=== PATIENT | male | born 1960 | race Caucasian/White ===

== ENCOUNTER 2020-02-18 21:04 | Observation (INO) | payer BC ==
[~2020-02-18] VITALS: Ht 182.9 cm; Wt 121.1 kg
[2020-02-18] MEDS ORDERED: KETOROLAC TROMETHAMINE 30 MG/ML VIAL IV STA (21:45)
[2020-02-18 21:50] LABS: BASOPHILS % 0.4 % (0.0-1.0); EOSINOPHILS # (AUTO) 0.1 (0.0-0.4); EOSINOPHILS % 1.2 % (0.0-6.0); HEMATOCRIT 46.4 % (38.2-49.6); HEMOGLOBIN 16.1 g/dL (14.0-18.0); LYMPHOCYTES % 26.1 % (18.0-39.1); MEAN CORPUSCULAR HEMOGLOBIN 31.7 pg (28-32); MEAN CORPUSCULAR HGB CONC 34.7 g/dL (31-35); MEAN CORPUSCULAR VOLUME 91.3 fL (81-99); MONOCYTES % 12.8 % (4.4-11.3); NEUTROPHILS # (AUTO) 4.5 (2.1-6.9); NEUTROPHILS % 58.5 % (38.7-80.0); PLATELET COUNT 211 x10e3/uL (140-360); RED BLOOD COUNT 5.08 x10e6/uL (4.3-5.7); RED CELL DISTRIBUTION WIDTH 12.5 % (11.7-14.4)
[2020-02-18 21:56] LABS: CLARITY,URINE CLEAR (CLEAR); COLOR,URINE YELLOW (YELLOW); KETONES,URINE TRACE (NEGATIVE); LEUKOCYTE ESTERASE ,URINE NEGATIVE (NEGATIVE); NITRITE,URINE NEGATIVE (NEGATIVE); PROTEIN,URINE DIPSTICK 2+ (NEGATIVE); URINE UROBILINOGEN 1 mg/dL (0.2 - 1)
[2020-02-18 21:57] LABS: BILIRUBIN,URINE NEGATIVE (NEGATIVE)
[2020-02-18 22:03] LABS: BACTERIA,URINE FEW /HPF
[2020-02-18 22:08] LABS: ALANINE AMINOTRANSFERASE 32 IU/L (0-55); ALBUMIN 4.6 g/dL (3.5-5.0); ALBUMIN/GLOBULIN RATIO 1.6 (0.8-2.0); ALKALINE PHOSPHATASE 109 IU/L (40-150); BLOOD UREA NITROGEN 10 mg/dL (7-26); BUN/CREATININE RATIO 9 (6-25); CALCIUM 9.4 mg/dL (8.4-10.2); CARBON DIOXIDE 23 mmol/L (22-29); CHLORIDE 100 mmol/L (98-107); CREATININE, SERUM 1.12 mg/dL (0.72-1.25); EST GLOMERULAR FILTRATION RATE > 60 ML/MIN (60-); GLUCOSE 167 mg/dL (74-118); SODIUM 140 mmol/L (136-145)
--- NOTE | 2020-02-18 23:07 | Diagnostic Imaging Report ---
EXAM: CT Abdomen and Pelvis WITHOUT contrast INDICATION: RT FLANK PAIN COMPARISON: None. TECHNIQUE: Abdomen and pelvis were scanned utilizing a multidetector helical scanner from the lung base to the pubic symphysis without administration of IV contrast. Absence of intravenous contrast decreases sensitivity for detection of focal lesions and vascular pathology. Coronal and sagittal reformations were obtained. Routine protocol was performed. IV CONTRAST: None ORAL CONTRAST: None COMPLICATIONS: None RADIATION DOSE: Total DLP: 849.91 mGy*cm Estimated effective dose: (DLP x 0.015 x size factor) mSv CTDIvol has been reviewed. It is below the limits set by the Radiation Protocol Committee (RPC). Dose modulation, iterative reconstruction, and/or weight based adjustment of the mA/kV was utilized to reduce the radiation dose to as low as reasonably achievable. FINDINGS: LINES and TUBES: None. LOWER THORAX: Unremarkable HEPATOBILIARY: No significant abnormality . GALLBLADDER: There are cholecystectomy clips. SPLEEN: No splenomegaly. PANCREAS: No significant abnormality . ADRENALS: No adrenal nodules KIDNEYS/URETERS: RIGHT: 4 mm calculus in the distal ureter with mild hydroureteronephrosis and associated mild perinephric fat stranding. LEFT: 2.6 cm fluid attenuating rounded lesion that abuts the renal pelvis may represent a parapelvic cyst, but incompletely characterized due to noncontrast technique. GI TRACT: No abnormal distention, wall thickening, or evidence of bowel obstruction. Appendix is normal. PELVIC ORGANS/BLADDER: Unremarkable. LYMPH NODES: No lymphadenopathy. VESSELS: Unremarkable. PERITONEUM / RETROPERITONEUM: No free air or fluid. BONES: Unremarkable. SOFT TISSUES: Small fat-containing inguinal hernias bilaterally. IMPRESSION: 4 mm calculus at the distal right ureter with mild right hydronephrosis. Signed by: Jonathon Patel MD on 02/18/2020 11:04 PM
[2020-02-18] MEDS ORDERED: HYDROMORPHONE 1MG/1ML INJ IV PRN (23:30)
[2020-02-18] MEDS ORDERED: ONDANSETRON HCL INJ 2MG/ML 2ML 2 MG/ML VIAL IV PRN (23:30)
--- NOTE | 2020-02-18 23:30 | Emergency Department Note ---
History of Present Illnes History of Present Illness Chief Complaint: Abdominal Complaints History of Present Illness This is a 59 year old male PRESENTS TO THE ER C/O RT FLANK PAIN RADIATING TO RT GROIN ONSET AROUND 1900; PT WAS DX WITH 6MM KIDNEY STONE IN RT URETER ON 02/16/20 AT [facility]; PT ALSO REPORTS HEMATURIA; PT IN OBVIOUS PAIN; . 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 Any updates have been documented here. Past Medical History Recent Fever: No Clinical Suspicion of Infectio: No New/Unexplained Change in Ment: No Past Medical History: Hypertension, Diabetes, Kidney Stones Past Surgical History: Cholecysctectomy, T&A, Hernia Repair Other Surgery: RT SHOULDER SX RT KNEE SX HERNIA REPAIR X2 LITHOTRIPSY X4 Social History Smoking Cessation: Never Smoker Alcohol Use: Occasional Any Illegal Drug Use: No Family History Family history of heart diseas: No Other Any Pre-Existing Lines (PICC,: No Review of Systems Review of Systems Constitutional: Reports no symptoms EENTM: Reports no symptoms Cardiovascular: Reports no symptoms Respiratory: Reports no symptoms Gastrointestinal: Reports no symptoms Genitourinary: Reports as per HPI Musculoskeletal: Reports no symptoms Integumentary: Reports no symptoms Neurological: Reports no symptoms Psychological: Reports no symptoms Endocrine: Reports no symptoms Hematological/Lymphatic: Reports no symptoms Physical Exam Related Data Allergies: Coded Allergies: No Known Allergies (Unverified , 02/18/20) Triage Vital Signs Vital Signs Date Time Temp Pulse Resp B/P (MAP) Pulse Ox O2 Delivery O2 Flow Rate FiO2 02/18/20 21:23 98.4 86 24 166/85 100 Room Air Vital signs reviewed: Yes Physical Exam CONSTITUTIONAL Constitutional: Present well-developed, Present well-nourished, Present distressed (MODERATE) HENT HENT: Present normocephalic, Present atraumatic, Present oropharynx clear/moist, Present nose normal HENT L/R: Present left ext ear normal, Present right ext ear normal EYES Eyes: Reports PERRL, Reports conjunctivae normal NECK Neck: Present ROM normal PULMONARY Pulmonary: Present effort normal, Present breath sounds normal CARDIOVASCULAR Cardiovascular: Present regular rhythm, Present heart sounds normal, Present capillary refill normal, Present normal rate GASTROINTESTINAL Abdominal: Present soft, Present nontender, Present bowel sounds normal, Present right CVA tenderness (MODERATE RIGHT) GENITOURINARY Genitourinary: Present exam deferred SKIN Skin: Present warm, Present dry MUSCULOSKELETAL Musculoskeletal: Present ROM normal NEUROLOGICAL Neurological: Present alert, Present oriented x 3, Present no gross motor or sensory deficits PSYCHOLOGICAL Psychological: Present mood/affect normal, Present judgement normal Results Laboratory Result Diagram: 02/18/20213402/18/202134 Laboratory Laboratory Tests Test 02/18/20 21:38 02/18/20 21:35 Urine Color Yellow (YELLOW) Urine Clarity Clear (CLEAR) Urine pH 5.5 (5 - 7) Urine Specific [place] 1.025 (1.010-1.025) Urine Protein 2+ (NEGATIVE) Urine Glucose (UA) Negative (NEGATIVE) Urine Ketones Trace (NEGATIVE) Urine Blood Small (NEGATIVE) Urine Nitrite Negative (NEGATIVE) Urine Bilirubin Negative (NEGATIVE) Urine Urobilinogen 1 mg/dL (0.2 - 1) Urine Leukocyte Esterase Negative (NEGATIVE) Urine RBC 6-10 /HPF (0-5) Urine WBC None /HPF (0-5) Urine Epithelial Cells None /LPF (NONE) Urine Bacteria Few /HPF (NONE) White Blood Count 7.65 x10e3/uL (4.8-10.8) Red Blood Count 5.08 x10e6/uL (4.3-5.7) Hemoglobin 16.1 g/dL (14.0-18.0) Hematocrit 46.4 % (38.2-49.6) Mean Corpuscular Volume 91.3 fL (81-99) Mean Corpuscular Hemoglobin 31.7 pg (28-32) Mean Corpuscular Hemoglobin Concent 34.7 g/dL (31-35) Red Cell Distribution Width 12.5 % (11.7-14.4) Platelet Count 211 x10e3/uL (140-360) Neutrophils (%) (Auto) 58.5 % (38.7-80.0) Lymphocytes (%) (Auto) 26.1 % (18.0-39.1) Monocytes (%) (Auto) 12.8 % (4.4-11.3) Eosinophils (%) (Auto) 1.2 % (0.0-6.0) Basophils (%) (Auto) 0.4 % (0.0-1.0) Neutrophils # (Auto) 4.5 (2.1-6.9) Lymphocytes # (Auto) 2.0 (1.0-3.2) Monocytes # (Auto) 1.0 (0.2-0.8) Eosinophils # (Auto) 0.1 (0.0-0.4) Basophils # (Auto) 0.0 (0.0-0.1) Absolute Immature Granulocyte (auto 0.08 x10e3/uL (0-0.1) Sodium Level 140 mmol/L (136-145) Potassium Level 4.0 mmol/L (3.5-5.1) Chloride Level 100 mmol/L (98-107) Carbon Dioxide Level 23 mmol/L (22-29) Anion Gap 21.0 mmol/L (8-16) Blood Urea Nitrogen 10 mg/dL (7-26) Creatinine 1.12 mg/dL (0.72-1.25) Estimat Glomerular Filtration Rate > 60 ML/MIN (60-) BUN/Creatinine Ratio 9 (6-25) Glucose Level 167 mg/dL (74-118) Calcium Level 9.4 mg/dL (8.4-10.2) Total Bilirubin 0.7 mg/dL (0.2-1.2) Aspartate Amino Transf (AST/SGOT) 22 IU/L (5-34) Alanine Aminotransferase (ALT/SGPT) 32 IU/L (0-55) Alkaline Phosphatase 109 IU/L (40-150) Total Protein 7.4 g/dL (6.5-8.1) Albumin 4.6 g/dL (3.5-5.0) Globulin 2.8 g/dL (2.3-3.5) Albumin/Globulin Ratio 1.6 (0.8-2.0) Lab results reviewed: Yes Imaging Imaging results reviewed: Yes Impressions Procedure: [id number] CT/CT ABDOMEN/PELVIS WO Exam Date: 02/18/20 Exam Time: 3 REPORT STATUS: Signed EXAM: CT Abdomen and Pelvis WITHOUT contrast INDICATION: RT FLANK PAIN COMPARISON: None. TECHNIQUE: Abdomen and pelvis were scanned utilizing a multidetector helical scanner from the lung base to the pubic symphysis without administration of IV contrast. Absence of intravenous contrast decreases sensitivity for detection of focal lesions and vascular pathology. Coronal and sagittal reformations were obtained. Routine protocol was performed. IV CONTRAST: None ORAL CONTRAST: None COMPLICATIONS: None RADIATION DOSE: Total DLP: 849.91 mGy*cm Estimated effective dose: (DLP x 0.015 x size factor) mSv CTDIvol has been reviewed. It is below the limits set by the Radiation Protocol Committee (RPC). Dose modulation, iterative reconstruction, and/or weight based adjustment of the mA/kV was utilized to reduce the radiation dose to as low as reasonably achievable. FINDINGS: LINES and TUBES: None. LOWER THORAX: Unremarkable HEPATOBILIARY: No significant abnormality . GALLBLADDER: There are cholecystectomy clips. SPLEEN: No splenomegaly. PANCREAS: No significant abnormality . ADRENALS: No adrenal nodules KIDNEYS/URETERS: RIGHT: 4 mm calculus in the distal ureter with mild hydroureteronephrosis and associated mild perinephric fat stranding. LEFT: 2.6 cm fluid attenuating rounded lesion that abuts the renal pelvis may represent a parapelvic cyst, but incompletely characterized due to noncontrast technique. GI TRACT: No abnormal distention, wall thickening, or evidence of bowel obstruction. Appendix is normal. PELVIC ORGANS/BLADDER: Unremarkable. LYMPH NODES: No lymphadenopathy. VESSELS: Unremarkable. PERITONEUM / RETROPERITONEUM: No free air or fluid. BONES: Unremarkable. SOFT TISSUES: Small fat-containing inguinal hernias bilaterally. IMPRESSION: 4 mm calculus at the distal right ureter with mild right hydronephrosis. Signed by: Dulce Maria Luna MD on 02/18/2020 11:04 PM Dictated By: DULCE MARIA LUNA MD 03 Transcribed By: NESTOR on 02/18/202303 COPY TO: RUBEN FRANKLIN MD~ Assessment & Plan Medical Decision Making MDM PT WITH RIGHT FLANK PAIN AND KNOWN KIDNEY STONE CBC, CMP, CT ABD/PELVIS, UA ORDERED TO EVAL FOR UTI, ELECTROLYTE ABNORMALITY, OBSTRUCTIVE URETEROLITHIASIS I SPOKE WITH DR VIERA AND DR JAMES, PLACE IN OBS, KEEP NPO Assessment & Plan Final Impression: (1) Ureterolithiasis (2) Right flank pain Depart Disposition: ADMITTED Last Vital Signs Date Time Temp Pulse Resp B/P (MAP) Pulse Ox O2 Delivery O2 Flow Rate FiO2 02/18/20 22:30 83 167/94 95 Room Air 02/18/20 21:23 98.4 24 Home Meds Reported Medications Cetirizine Hcl (ZYRTEC) 10 Mg Capsule, 10 MG PO DAILY THERAPEUTICALLY SUBSTITUTED WITH LORATIDINE 10MG 02/19/20 Ropinirole Hcl (ROPINIROLE HCL) 0.5 Mg Tablet, 2.5 MG PO DAILY 02/19/20 Loratadine/Pseudoephedrine (CLARITIN-D 24 HOUR TABLET) 1 Each Tab.er.24h, 1 EACH PO DAILY, #30 TAB 02/19/20 Naproxen Sodium (NAPROXEN SODIUM) 220 Mg Tablet, 440 MG PO BID 02/19/20 Liraglutide (VICTOZA 3-VANESSA) 0.6 Mg/0.1 Ml Pen.injctr, 1 DOSE SQ DAILY PLEASE NOTE THAT PT'S PEN IS MULIDOSE 02/19/20 Metformin Hcl (METFORMIN HCL ER) 500 Mg Tab.er.24h, 500 MG PO BID 02/19/20 Omeprazole (OMEPRAZOLE) 40 Mg Capsule.dr, 40 MG PO DAILY 02/19/20 Lisinopril (LISINOPRIL) 40 Mg Tablet, 40 MG PO DAILY 02/19/20 Diltiazem Hcl (DILTIAZEM HCL) 120 Mg Tablet, 120 MG PO DAILY 02/19/20 Medications in the ED Ketorolac Tromethamine 30 mg ONCE STAT IV Last administered on 02/18/20at 22:27; Admin Dose 30 MG; Start 02/18/20 at 21:45; Stop 02/18/20 at 21:47; Status DC RUBEN FRANKLIN MD Feb 18, 2020 23:30
[2020-02-19] VITALS (8 sets, daily range): BP systolic 106–169; BP diastolic 65–90
[2020-02-19] MEDS ORDERED: DILTIAZEM HCL120 MG PO (00:04)
[2020-02-19] MEDS ORDERED: LISINOPRIL40 MG PO (00:04)
[2020-02-19] MEDS ORDERED: ZYRTEC10 M3 PO (00:04)
[2020-02-19] MEDS ORDERED: CLARITIN-D 241 EACH PO (00:04)
[2020-02-19] MEDS ORDERED: METFORMIN HCL500 M1 PO (00:04)
[2020-02-19] MEDS ORDERED: NAPROXEN SODIU220 MG PO (00:04)
[2020-02-19] MEDS ORDERED: ROPINIROLE HCL0.5 MG PO (00:04)
[2020-02-19] MEDS ORDERED: VICTOZA 3-0.6 MG/0.1 SQ (00:04)
[2020-02-19] MEDS ORDERED: OMEPRAZOLE40 MG PO (00:04)
[2020-02-19] MEDS ORDERED: FLOMAX0.4 MG PO (03:11)
[2020-02-19] MEDS: SODIUM CHLORIDE 0.9% 1000ML 1,000 ML IV SCH ×4 (03:31→20:37)
[2020-02-19] MEDS: CEFTRIAXONE SOD 1 GM/NS 50 ML 50 ML IV SCH (03:32)
--- OUTSIDE RECORDS SUMMARY | 2020-02-19 10:47 | XMS REPORT | Continuity of Care Document ---
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 Allergies, Adverse Reactions, Alerts This patient has no known allergies or adverse reactions. Medications This patient has no known medications. Procedures This patient has no known procedures. Results Test Description Test Time Test Comments Results Result Comments Source CT ABDOMEN/PELVIS WO 2020-02-18 22:54:00 [place] [address] Patient Name: ARMAND MEDINA MR #: [id number] : 1960 Age/Sex: 59/M Req #: [id number] Adm Physician: Ordered by: RUBEN FRANKLIN MD Report #: [id number] Location: ER Room/Bed: Procedure: [id number] CT/CT ABDOMEN/PELVIS WO Exam Date: 02/18/20 Exam Time: 2212 REPORT STATUS: Signed EXAM: CT Abdomen and Pelvis WITHOUT contrast INDICATION: RT FLANK PAIN COMPARISON: None. TECHNIQUE: Abdomen and pelvis were scanned utilizing a multidetector helical scanner from the lung base to the pubic symphysis without administration of IV contrast. Absence of intravenous contrast decreases sensitivity for detection of focal lesions and vascular pathology. Coronal and sagittal reformations were obtained. Routine protocol was performed. IV CONTRAST: None ORAL CONTRAST: None COMPLICATIONS: None RADIATION DOSE: Total DLP: 849.91 mGy*cm Estimated effective dose: (DLP x 0.015 x size factor) mSv CTDIvol has been reviewed. It is below the limits set by the Radiation Protocol Committee (RPC). Dose modulation, iterative reconstruction, and/or weight based adjustment of the mA/kV was utilized to reduce the radiation dose to as low as reasonably achievable. FINDINGS: LINES and TUBES: None. LOWER THORAX: Unremarkable HEPATOBILIARY: No significant abnormality . GALLBLADDER: There are cholecystectomy clips. SPLEEN: No splenomegaly. PANCREAS: No significant abnormality . ADRENALS: No adrenal nodules KIDNEYS/URETERS: RIGHT: 4 mm calculus in the distal ureter with mild hydroureteronephrosis and associated mild perinephric fat stranding. LEFT: 2.6 cm fluid attenuating rounded lesion that abuts the renal pelvis may represent a parapelvic cyst, but incompletely characterized due to noncontrast technique. GI TRACT: No abnormal distention, wall thickening, or evidence of bowel obstruction. Appendix is normal. PELVIC ORGANS/BLADDER: Unremarkable. LYMPH NODES: No lymphadenopathy. VESSELS: Unremarkable. PERITONEUM / RETROPERITONEUM: No free air or fluid. BONES: Unremarkable. SOFT TISSUES: Small fat- containing inguinal hernias bilaterally. IMPRESSION: 4 mm calculus at the distal right ureter with mild right hydronephrosis. Signed by: Dulce Maria Luna MD on 02/18/2020 11:04 PM Dictated By: DUCLE MARIA LUNA MD 03 Transcribed By: NESTOR on 02/18/202303 COPY TO: RUBEN FRANKLIN MD
--- NOTE | 2020-02-19 16:35 | NUR ---
Called Dr. Dumont office re: pt wants to eat and drink if he is not going to surgery. Patient is the one instigating the contact and states he is very thirsty and has a headache
--- NOTE | 2020-02-19 20:11 | NUR ---
Notified Sharee WARREN/Dr. Ferro of patient blood pressure 169/84. New order received to give one time dose of scheduled blood pressure medication Cardizem 20mg, lisinopril 40mg and also give ropinirole 2.5mg. Medication given to patient. Will cont to monitor.
[2020-02-19] MEDS ORDERED: METFORMIN HCL 500 MG TAB CR PO ONE (20:15)
[2020-02-19] MEDS ORDERED: DILTIAZEM HCL ER 120 MG CAP PO ONE (20:15)
[2020-02-19] MEDS ORDERED: LISINOPRIL 20 MG TAB PO ONE (20:15)
[2020-02-19] MEDS ORDERED: ROPINIROLE HCL 1 MG TAB PO ONE (20:30)
[2020-02-20] VITALS: BP 142/77
[2020-02-20] MEDS: CEFTRIAXONE SOD 1 GM/NS 50 ML 50 ML IV SCH (00:48)
[2020-02-20 04:00] VITALS: BP 136/83
[2020-02-20] MEDS: SODIUM CHLORIDE 0.9% 1000ML 1,000 ML IV SCH (05:24)
[2020-02-20 05:45] LABS: BASOPHILS % 0.4 % (0.0-1.0); EOSINOPHILS # (AUTO) 0.1 (0.0-0.4); EOSINOPHILS % 1.8 % (0.0-6.0); HEMATOCRIT 43.1 % (38.2-49.6); HEMOGLOBIN 14.6 g/dL (14.0-18.0); LYMPHOCYTES # (AUTO) 1.4 (1.0-3.2); LYMPHOCYTES % 28.3 % (18.0-39.1); MEAN CORPUSCULAR HEMOGLOBIN 31.7 pg (28-32); MEAN CORPUSCULAR HGB CONC 33.9 g/dL (31-35); MEAN CORPUSCULAR VOLUME 93.7 fL (81-99); MONOCYTES # (AUTO) 0.7 (0.2-0.8); MONOCYTES % 13.6 % (4.4-11.3); NEUTROPHILS # (AUTO) 2.8 (2.1-6.9); NEUTROPHILS % 55.1 % (38.7-80.0); PLATELET COUNT 164 x10e3/uL (140-360); RED CELL DISTRIBUTION WIDTH 12.7 % (11.7-14.4)
[2020-02-20 06:02] LABS: ANION GAP 14.1 mmol/L (8-16); BLOOD UREA NITROGEN 8 mg/dL (7-26); BUN/CREATININE RATIO 9 (6-25); CALCIUM 8.3 mg/dL (8.4-10.2); CARBON DIOXIDE 26 mmol/L (22-29); CHLORIDE 104 mmol/L (98-107); CREATININE, SERUM 0.87 mg/dL (0.72-1.25); EST GLOMERULAR FILTRATION RATE > 60 ML/MIN (60-); GLUCOSE 134 mg/dL (74-118); POTASSIUM 4.1 mmol/L (3.5-5.1); SODIUM 140 mmol/L (136-145)
--- NOTE | 2020-02-20 07:07 | NUR ---
Notified Ivone Murray NP that today is Day 2 Obs. She stated Shahrzad WARREN will be seeing pt today, and she will notify her and give her CM cell.
--- NOTE | 2020-02-20 07:46 | Diagnostic Imaging Report ---
EXAM: Abdomen Radiograph 1 View(s) INDICATION: ^stone ^[id number] ^[id number] COMPARISON: CT abdomen/pelvis 02/18/2020 FINDINGS: No lines or tubes. No dilated loops of bowel. No air-fluid levels. Normal volume of stool in the colon. No evidence of pneumoperitoneum. Surgical clips in the right upper abdominal quadrant. Small radiodensity along the right side of the colon, correlates with bowel contents on prior CT. There are 2 punctate calcifications along the right side of the pelvis, may correlate with known distal right ureteral stone or pelvic phleboliths. No acute osseous abnormality. No abnormalities in the lower chest. IMPRESSION: 1. There are 2 punctate calcifications along the right side of the pelvis, may correlate with known distal right ureteral stone or pelvic phleboliths. 2. Nonobstructive bowel gas pattern. Signed by: Dr. Jacobo Banegas M.D. on 02/20/2020 7:43 AM
[2020-02-20 07:53] VITALS: BP 154/87
[2020-02-20 07:56] VITALS: BP 154/87
[2020-02-20] MEDS: METFORMIN HCL 500 MG TAB CR PO SCH ×2 (08:00→10:54)
--- NOTE | 2020-02-20 08:22 | NUR ---
BASHIR MARTINEZ SERGEANT MISSILE CREWMAN CALLED CM AND STATED DR. RIZO IS TREATING PT, AND SHE PLANS TO DC PT TOMORROW MORNING OR ADMIT INPATIENT PENDING UROLOGIST.
[2020-02-20] MEDS: LISINOPRIL 20 MG TAB PO SCH ×2 (09:00→10:54)
[2020-02-20] MEDS ORDERED: DILTIAZEM HCL 120 MG PO SCH (09:00)
[2020-02-20] MEDS: PANTOPRAZOLE SOD 40 MG TABEC PO SCH ×2 (09:00→10:55)
[2020-02-20] MEDS ORDERED: LIRAGLUTIDE SC SCH (09:00)
[2020-02-20] MEDS: DILTIAZEM HCL ER 120 MG CAP PO SCH ×2 (09:00→10:53)
[2020-02-20] MEDS: ROPINIROLE HCL 1 MG TAB PO SCH ×2 (09:00→10:55)
[2020-02-20 09:25] VITALS: BP 154/87
[2020-02-20 11:32] VITALS: BP 167/80
--- NOTE | 2020-02-20 18:21 | Discharge Summary ---
CONSULTING PHYSICIANS: Dr. Omer Berkowitz, urologist. CHIEF COMPLAINT: Right flank pain, ureterolithiasis. HOSPITAL COURSE: This is a 59-year-old male with past medical history of hypertension, type 2 diabetes, and previous history of kidney stone, presented with right flank pain. The patient received IV fluids and IV Rocephin. He got evaluated by the urologist and his stone has moved down and he currently denies any flank pain. The urologist has cleared him for discharge home. His urinalysis shows no WBC. Currently, the patient is afebrile. His vital signs includes temperature is 98.4, heart rate is 65, blood pressure is 154/84, respiratory rate is 20, heart rate is 65, and oxygen saturations 97 on room air. PAST MEDICAL HISTORY: Hypertension, type 2 diabetes, and recurrent kidney stones. SURGICAL HISTORY: Cholecystectomy, hernia repair x2, right shoulder surgery, right knee surgery, and lithotripsy x4. SOCIAL HISTORY: Occasional alcohol. Nonsmoker. ALLERGIES: NO KNOWN DRUG ALLERGIES. DISCHARGE DIAGNOSES: 1. Hypertension. 2. Type 2 diabetes. Follow up with the primary care physician as an outpatient and follow up with urologist in one week. Dictated by Shahrzad Magallon NP MD TONY Patel/ERNESTINA /[id number]
--- NOTE | 2020-02-21 11:18 | Consultation ---
DATE OF CONSULTATION: 02/19/2020 Urology Consultation Consultation is called by Dr. Ferro. CHIEF COMPLAINT/REASON FOR CONSULTATION: Stones. HISTORY OF PRESENT ILLNESS: Mr. Grande is a very pleasant 59-year-old male with history of kidney stones. He denied dysuria. Denied hematuria. No fevers, no chills. PAST MEDICAL HISTORY: Cholecystectomy, tonsillectomy, hernias, hypertension, diabetes mellitus, kidney stones. PAST SURGICAL HISTORY: ESWL four time, hernias x2, right knee surgery, and right shoulder surgery. MEDICATIONS: Please see MAR. ALLERGIES: NKDA. SOCIAL HISTORY: Denied smoking or drinking. FAMILY HISTORY: Denied urologic stones or malignancies. REVIEW OF SYSTEMS: Noncontributory, other than problems mentioned above for 12-organ systems. PHYSICAL EXAMINATION: GENERAL: Elderly male, in no distress. VITAL SIGNS: Temperature 97.4, pulse 80, respirations 20, and blood pressure 106/65. HEENT: Sclerae anicteric. NECK: Supple. BACK: Without costovertebral angle tenderness bilaterally. ABDOMEN: Soft, is nontender, is nondistended. No palpable mass, no palpable hernias, and no palpable adenopathy. : Normal male external genitalia. EXTREMITIES: No edema. NEURO: Moves all 4 extremities. PSYCH: Alert, mood appropriate. SKIN: Intact. Normal color. PERTINENT LABORATORY DATA: CT scan revealing a 4 mm right UVJ stone, right hydronephrosis, and left 2.6 cm renal cyst. Hemoglobin 14, hematocrit 46, platelet count 211,000, and white blood cell count 7650. Sodium 140, potassium 4.0, chloride 100, bicarb 23, BUN 10, creatinine 1.1, and glucose 167. Urinalysis, 6-10 reds, 2+ protein. BMI of 36. IMPRESSION: 1. Ureteral calculus. 2. Hydronephrosis. 3. Microscopic hematuria. 4. Renal cyst. 5. Obesity. PLAN: We will employ a trial of passage after the patient passed a small stone. Discussed surveillance of the cyst. Discussed weight loss. Omer Berkowitz MD ES/MODL /[id number] cc: Riaz Ferro MD
== END 2020-02-20 13:40 | disposition home or self-care (01) ==
LOC: ER 22:10 → ERHOLD 23:32 → MED/SURG 02-19 02:33
PROVIDERS: ADMIT Internal Medicine; ATTEND Internal Medicine
DX: N13.2 Hydronephrosis with renal and ureteral calculous obstruction (principal); R31.29 Other microscopic hematuria; E66.9 Obesity, unspecified; Z68.36 Body mass index [BMI] 36.0-36.9, adult; E11.9 Type 2 diabetes mellitus without complications; Z11.59 Encounter for screening for other viral diseases; Z79.4 Long term (current) use of insulin
CPT/HCPCS: 36415 ×2; 74018; 74176; 80048; 80053; 81001; 82948; 85025 ×2; 96374; 99283; G0378 ×3; J0696 ×2; J1885; J7030 ×2; S0164; U0002